=== PATIENT | female | born 2000 | race African-American/Black ===

== ENCOUNTER 2024-02-28 21:34 | Observation (INO) | payer MEDICAID ==
[~2024-02-28] VITALS: Ht 149.9 cm; Wt 99.8 kg
== END 2024-02-28 22:42 | disposition home or self-care (01) ==
LOC: LDRP 21:34
PROVIDERS: ADMIT Obstetrics & Gynecology; ATTEND Obstetrics & Gynecology
DX: O26.893 Other specified pregnancy related conditions, third trimester (principal); R10.2 Pelvic and perineal pain; Z3A.38 38 weeks gestation of pregnancy
CPT/HCPCS: 59025; 81002; 94760; G0378